=== PATIENT | male | born 1975 | race Caucasian/White ===

== ENCOUNTER → 2019-11-30 | Outpatient (CLI) | payer OTHER | END | disposition home or self-care (01) | LOC: LABWHC1 07:50 | PROVIDERS: ATTEND Otolaryngology | DX: J30.89 Other allergic rhinitis (principal) | CPT/HCPCS: 36415 ==

== ENCOUNTER → 2020-02-24 | Outpatient (CLI) | payer OTHER | END | disposition home or self-care (01) | LOC: LABWHC1 13:09 | PROVIDERS: ATTEND Internal Medicine | DX: Z20.828 Contact with and (suspected) exposure to other viral communicable diseases (principal) | CPT/HCPCS: U0003; C9803 ==

== ENCOUNTER 2020-02-26 13:29 | Emergency (ER) | payer OTHER ==
[2020-02-26 13:36] VITALS: TEMP 97.8
[2020-02-26] MEDS ORDERED: dexAMETHasone 4 MG TAB PO STA (13:49)
[2020-02-26] MEDS ORDERED: ALBUTEROL HFA INHALER INHALATION STA (13:50)
[2020-02-26] MEDS ORDERED: guaiFENesin-DM 100-10MG/5ML 10 ML CUP PO STA (13:50)
--- NOTE | 2020-02-26 13:51 | ED ---
SOB HPI - General Chief Complaint: Shortness of Breath Stated Complaint: SOB Time Seen by Provider: 02/26/20 13:39 Source: patient Mode of arrival: ambulatory Limitations: no limitations - History of Present Illness Initial Comments: Patient complains of shortness of breath. He has a mild cough. He has no chest pain or pressure or tightness. He has no nausea or vomiting. He has no focal weakness, lightheadedness or dizziness. He has no trouble walking. He is tolerating oral intake. - Related Data Home Medications Medication Instructions Recorded Confirmed Acetaminophen Tab [Tylenol] 1,000 mg PO Q4H PRN 02/26/20 02/26/20 Loratadine-Pseudoeph 10-240 mg 1 tab PO DAILY PRN 02/26/20 02/26/20 [Claritin-D 24 Hour] Tadalafil [Cialis] 20 mg PO DAILY PRN 02/26/20 02/26/20 Previous Rx's Medication Instructions Recorded Azithromycin [Zithromax Z-pack (6 250 mg PO DIRECTED 5 Days #6 tab 02/26/20 tabs)] Allergies Allergy/AdvReac Type Severity Reaction Status Date / Time No Known Allergies Allergy Verified 02/26/20 14:22 Review of Systems ROS Statement: Those systems with pertinent positive or pertinent negative responses have been documented in the HPI. ROS Other: All systems not noted in ROS Statement are negative. Past Medical History Past Medical History: No Reported History History of Any Multi-Drug Resistant Organisms: None Reported Past Surgical History: No Surgical Hx Reported Past Psychological History: No Psychological Hx Reported Smoking Status: Never smoker Past Alcohol Use History: None Reported Past Drug Use History: None Reported General Exam Limitations: no limitations General appearance: alert, in no apparent distress Head exam: Present: atraumatic, normocephalic, normal inspection Eye exam: Present: normal appearance, PERRL, EOMI. Absent: scleral icterus, conjunctival injection, periorbital swelling ENT exam: Present: normal exam, mucous membranes moist Neck exam: Present: normal inspection. Absent: tenderness, meningismus, lymphadenopathy Respiratory exam: Present: normal lung sounds bilaterally. Absent: respiratory distress, wheezes, rales, rhonchi, stridor Cardiovascular Exam: Present: regular rate, normal rhythm, normal heart sounds. Absent: systolic murmur, diastolic murmur, rubs, gallop, clicks GI/Abdominal exam: Present: soft, normal bowel sounds. Absent: distended, tende rness, guarding, rebound, rigid Extremities exam: Present: normal inspection, full ROM, normal capillary refill. Absent: tenderness, pedal edema, joint swelling, calf tenderness Back exam: Present: normal inspection Neurological exam: Present: alert, oriented X3, CN II-XII intact Psychiatric exam: Present: normal affect, normal mood Skin exam: Present: warm, dry, intact, normal color. Absent: rash Course Vital Signs 02/26/20 13:32 Temperature 97.8 F Pulse Rate 87 Respiratory 20 Rate Blood Pressure 142/93 O2 Sat by Pulse 97 Oximetry Medical Decision Making - Medical Decision Making Patient presented with cough, shortness of breath. His vital signs are normal. He does not require supplemental oxygen. His chest x-rays clear. Patient is given steroids and guaifenesin in the [facility]. He is feeling better. He is stable for discharge. Disposition Clinical Impression: URI (upper respiratory infection) Disposition: HOME SELF-CARE Condition: Good Instructions (If sedation given, give patient instructions): Acute Bronchitis (ED) Prescriptions: Azithromycin [Zithromax Z-pack (6 tabs)] 250 mg PO DIRECTED 5 Days #6 tab Is patient prescribed a controlled substance at d/c from ED?: No Referrals: Vikram Andre MD [Primary Care Provider] - 1-2 days
--- NOTE | 2020-02-26 14:17 | XR ---
EXAMINATION TYPE: XR chest 1V portable DATE OF EXAM: 02/26/2020 COMPARISON: NONE HISTORY: Short of breath TECHNIQUE: FINDINGS: Heart is normal. Lungs are clear of infiltrate. There is no heart failure. There are no hil ar masses. Bony thorax is intact. IMPRESSION: No active cardiopulmonary disease. Normal heart.
[2020-02-26 15:00] VITALS: BP 133/92; PULSE 80; RESP 18
== END 2020-02-26 15:01 | disposition home or self-care (01) ==
LOC: EC 13:29
DX: J06.9 Acute upper respiratory infection, unspecified (principal)
CPT/HCPCS: 94640; 71045; 99285; J8540

== ENCOUNTER → 2020-03-12 | Outpatient (CLI) | payer OTHER | END | disposition home or self-care (01) | LOC: LABWHC1 15:41 | PROVIDERS: ATTEND Internal Medicine | DX: U07.1 COVID-19 (principal) | CPT/HCPCS: U0003; C9803 ==

== ENCOUNTER → 2020-03-20 | Outpatient (CLI) | payer OTHER ==
--- NOTE | 2020-03-20 15:57 | XR ---
EXAMINATION TYPE: XR chest 2V DATE OF EXAM: 03/20/2020 COMPARISON: Prior chest x-ray 02/26/2020 HISTORY: History of bronchitis, U07.1, Covid TECHNIQUE: Frontal and lateral views of the chest are obtained. FINDINGS: There is no pleural effusion or pneumothorax seen. Suprahilar density on the right appears somewhat more conspicuous possibly due to differences in technique. The cardiac silhouette size is w ithin normal limits. The osseous structures are intact. IMPRESSION: Suspect findings of suprahilar density may be be due to differences in technique, short interval follow-up could be performed to assess for stability.
== END | disposition home or self-care (01) ==
LOC: RADXRMAIN 11:40
PROVIDERS: ATTEND Internal Medicine
DX: U07.1 COVID-19 (principal)
CPT/HCPCS: 71046

== ENCOUNTER → 2020-03-29 | Outpatient (CLI) | payer OTHER ==
--- NOTE | 2020-03-29 11:50 | CT ---
EXAMINATION TYPE: CT chest w con DATE OF EXAM: 03/29/2020 COMPARISON: X-ray 03/20/2020 HISTORY: Abnormal finding of lung field CT DLP: 326.50 mGycm Automated exposure control for dose reduction was used. CONTRAST: CT scan of the chest is performed with IV Contrast, patient injected with 100 ml mL of Isovue 300. FINDINGS: LUNGS: Nonspecific areas of bilateral subsegmental consolidation. No overt failure.. There is no pl eural effusion or pneumothorax seen. The tracheobronchial tree is patent. MEDIASTINUM: There are no greater than 1 cm hilar or mediastinal lymph nodes. No pericardial effusi on is seen. Heart size prominent. There does appear to be mild aneurysmal dilation of the aortic brianne t measuring 4.1 cm. Descending thoracic aorta measures normal caliber. OTHER: No additional significant abnormality is seen. IMPRESSION: 1. No evidence of concerning pulmonary mass or adenopathy. 2. Areas of subsegmental consolidation. Findings are scattered bilaterally and felt to be most likely on the basis of atelectasis rather than a pneumonitis. Correlate clinically. 3. Mild aneurysmal dilation of the aortic root measuring 4.1 cm
== END | disposition home or self-care (01) ==
LOC: RADCTMAIN 09:34
PROVIDERS: ATTEND Internal Medicine
DX: I77.810 Thoracic aortic ectasia (principal); J18.1 Lobar pneumonia, unspecified organism; U07.1 COVID-19
CPT/HCPCS: 71260; Q9967

== ENCOUNTER → 2020-04-12 | Outpatient (CLI) | payer OTHER ==
--- NOTE | 2020-04-12 18:04 | ECHOF ---
Referral Reason:I71.9 Aortic aneurysm of unspecified site MEASUREMENTS -------- HEIGHT: 185.4 cm WEIGHT: 93.0 kg BP: 121/76 IVSd: 1.2 cm (0.6 - 1.1) LVIDd: 5.4 cm (3.9 - 5.3) LVPWd: 1.1 cm (0.6 - 1.1) IVSs: 1.8 cm LVIDs: 3.3 cm LVPWs: 1.8 cm LA Diam: 3.1 cm (2.7 - 3.8) RVIDd: 3.1 cm (< 3.3) LAESV Index (A-L): 18.70 ml/m Ao Diam: 4.5 cm (2.0 - 3.7) AV Cusp: 2.9 cm (1.5 - 2.6) EPSS: 0.6 cm MV E Lei: 0.78 m/s MV DecT: 265 ms MV A Lei: 0.76 m/s MV E/A Ratio: 1.03 RAP: 5.00 mmHg RVSP: 17.98 mmHg MV EF SLOPE: 138.70 mm/s (70 - 150) MV EXCURSION: 16.59 mm (> 18.000) FINDINGS -------- Sinus rhythm. This was a technically good study. The left ventricular size is normal. There is borderline concentric left ventricular hypertrophy. Overall left ventricular systolic function is normal with, an EF between 60 - 65 %. The right ventricle is normal in size. Normal LA size by volume 22+/-6 ml/m2. The right atrium is normal in size. Interatrial and interventricular septum intact. The aortic valve is trileaflet and appears structurally normal. The mitral valve is normal. The tricuspid valve appears structurally normal. Trace/mild (physiologic) pulmonic regurgitation. The aortic root is dilated measuring 4.5cm. Normal inferior vena cava with normal inspiratory collapse consistent with estimated right atrial pre ssure of 5 mmHg. There is no pericardial effusion. CONCLUSIONS -------- 1. The left ventricular size is normal. 2. There is borderline concentric left ventricular hypertrophy. 3. Overall left ventricular systolic function is normal with, an EF between 60 - 65 %. 4. Trace/mild (physiologic) pulmonic regurgitation. 5. The aortic root is dilated measuring 4.5cm. 6. There is no pericardial effusion. CONTROL TOWER OPERATOR: Susanne Bran RDCS
== END | disposition home or self-care (01) ==
LOC: RADECHMAIN 08:21
PROVIDERS: ATTEND Internal Medicine
DX: I37.1 Nonrheumatic pulmonary valve insufficiency (principal); I77.819 Aortic ectasia, unspecified site
CPT/HCPCS: 93306

== ENCOUNTER → 2021-04-01 | Outpatient (CLI) | payer OTHER ==
--- NOTE | 2021-04-01 12:55 | CT ---
EXAMINATION TYPE: CT angio chest DATE OF EXAM: 04/01/2021 COMPARISON: 03/29/2020 HISTORY: 45-year-old male I71.2, follow up thoracic aneurysm TECHNIQUE: Contiguous axial scanning of the chest performed without and with IV Contrast, patient inj ected with 100 mL of Isovue 370. Coronal/sagittal MIP reconstructions performed. 3-D reconstructions generated on a dedicated independent workstation. CT DLP: 626.1 mGycm Automated exposure control for dose reduction was used. FINDINGS: Heart upper limits of normal in size without pericardial effusion. Aortic root aneurysmal at 4.3 cm. There is some limitation due to cardiac motion. Not significantly c hanged. Ascending aorta also aneurysmal at 4.3 cm, unchanged. The metatarsal branching anatomy. No evidence for aortic dissection. Initial noncontrast images show no evidence for acute or intramura l hematoma. Upper descending thoracic aorta 2.8 cm, within normal limits. No thoracic lymphadenopathy by CT size criteria. Mild diffuse bronchial wall thickening. Minimal centrilobular emphysema. Mild dependent atelectasis a long the posterior aspect of the lungs. No consolidation or pleural effusion. Tiny hiatal hernia. Visualized upper abdomen shows a tiny inferior hilar splenule. Bones: No osseous destructive process. IMPRESSION: 1. STABLE ASCENDING AORTIC ANEURYSM (ASCENDING AORTA AND ROOT MEASURING 4.3 CM). 2. COPD WITH MILD EMPHYSEMA. 3. TINY HIATAL HERNIA.
== END | disposition home or self-care (01) ==
LOC: RADCTMAIN 08:49
PROVIDERS: ATTEND Internal Medicine Interventional Cardiology
DX: I71.2 Thoracic aortic aneurysm, without rupture (principal); J43.9 Emphysema, unspecified; K44.9 Diaphragmatic hernia without obstruction or gangrene
CPT/HCPCS: 71275; Q9967

== ENCOUNTER 2021-07-19 08:16 | Day surgery (SDC) | payer OTHER ==
[2021-07-17 09:43] VITALS: BMI 27.0
[~2021-07-19 08:16] MED LIST: LACTATED RINGERS 1,000 ML IV SCH; LIDOCAINE 1% (10MG/ML) FOR IV START INTRADERMA PRN
[2021-07-19 08:34] VITALS: TEMP 97.2
[2021-07-19] MEDS ORDERED: LIDOCAINE 1% INJ 10MG/ML (20 ML MDV) ONE (08:41)
[2021-07-19] MEDS ORDERED: PROPOFOL 10 MG/ML 20 ML VIAL IV ONE (08:41)
--- NOTE | 2021-07-19 09:03 | P.HPIHPCON ---
History of Present Illness H&P Date: 07/19/21 46-year-old male presents today for screening colonoscopy. Last colonoscopy was 3 years ago. Patient does have a family history of colon cancer with his father. Consent for Procedure: I have explained the operation/procedure to the patient, including the risks, benefits, side effects, alternative therapies (including not receiving the proposed treatment or service), the likelihood of the patient achieving his/her goals, and potential recuperation problems for the procedure/sedation/analgesia, as well as any blood products, if indicated. I also explained to the patient the risks, benefits and side effects of the alternatives, as well as the risks related to not receiving the proposed procedure, care, treatment, or services. - Review of Systems All systems: negative Past Medical History Past Medical History: No Reported History History of Any Multi-Drug Resistant Organisms: None Reported Past Surgical History: No Surgical Hx Reported Additional Past Surgical History / Comment(s): COLONOSCOPY Past Anesthesia/Blood Transfusion Reactions: No Reported Reaction Smoking Status: Never smoker - Past Family History Father Family Medical History: Cancer Additional Family Medical History / Comment(s): COLON Medications and Allergies Home Medications Medication Instructions Recorded Confirmed Type No Known Home Medications 07/17/21 07/19/21 History Allergies Allergy/AdvReac Type Severity Reaction Status Date / Time No Known Allergies Allergy Verified 07/19/21 08:22 Surgical - Exam Osteopathic Statement: *. No significant issues noted on an osteopathic structural exam other than those noted in the History and Physical/Consult. Vital Signs Temp Pulse Resp BP Pulse Ox 97.2 F L 67 16 127/71 98 07/19/21 08:32 07/19/21 08:32 07/19/21 08:32 07/19/21 08:32 07/19/21 08:32 - General well nourished, no distress - ENT no hearing loss - Neck trachea midline - Respiratory normal respiratory effort - Abdomen Abdomen: soft, non tender Assessment and Plan Plan: 46-year-old male presents today for screening colonoscopy. Risks, benefits and alternatives were provided to the patient. He did provide consent. Further recommendations to be made after procedure is completed.
--- NOTE | 2021-07-19 09:06 | P.PCN ---
Date of Procedure: 07/19/21 Preoperative Diagnosis: Screening family history of colon cancer Postoperative Diagnosis: Colon polyps Diverticulosis Procedure(s) Performed: Colonoscopy with hot snare polypectomy and forcep polypectomy Anesthesia: MAC Surgeon: Diya Sweeney Pathology: other (Polyps of the hepatic flexure and transverse colon) Condition: stable Disposition: same day Indications for Procedure: 46-year-old male presents today for screening colonoscopy. He does have a family history of colon cancer with his father being diagnosed with colon cancer. His brother does have a history of colitis. Risks, benefits and alternatives were provided. Operative Findings: Polyps of the hepatic flexure and transverse colon Mild diverticulosis Description of Procedure: The patient was brought to the endoscopy suite and placed in left lateral decubitus position. Adequate sedation was achieved using conscious sedation. A digital rectal exam was performed and internal hemorrhoids were palpated. An endoscope was then placed in the rectum and advanced to the cecum as identified by landmarks including the appendiceal orifice and the ileocecal valve. The prep was good. The colonoscope was slowly withdrawn, examining for any mucosal abnormalities. The cecum, ascending, transverse, descending and sigmoid colon were visualized adequately. There were no obvious neoplastic lesions noted throughout the colon. Polyp was noted at the hepatic flexure. This was sessile appearing. Forcep polypectomy was used to remove this polyp and piecemeal fashion. The hemostasis was maintained. Additional polyp was noted in the transverse colon. This was removed with hot snare polypectomy. Hemostasis was maintained. Mild diverticulosis was noted in the sigmoid colon. Retroflexion was performed in the rectum and internal hemorrhoids were visible. Excess air was removed, the colonoscope withdrawn and the procedure terminated. The patient was then transferred to the recovery unit in stable condition. Repeat colonoscopy should be performed in 3years.
[2021-07-19 09:20] VITALS: RESP 16
[2021-07-19 09:37] VITALS: BP 119/83; PULSE 58
== END 2021-07-19 09:55 | disposition home or self-care (01) ==
LOC: ORWHC2ENDO 08:16
PROVIDERS: ATTEND Surgery
DX: Z12.11 Encounter for screening for malignant neoplasm of colon (principal); K57.90 Diverticulosis of intestine, part unspecified, without perforation or abscess without bleeding; D12.3 Benign neoplasm of transverse colon; Z80.0 Family history of malignant neoplasm of digestive organs
CPT/HCPCS: 45380; 45385; 88305; J2001; J2704

== ENCOUNTER → 2021-08-15 | Outpatient (CLI) | payer OTHER ==
--- NOTE | 2021-08-15 11:05 | CT ---
EXAMINATION TYPE: CT abdomen pelvis wo con DATE OF EXAM: 08/15/2021 COMPARISON: None HISTORY: N23 renl colic L side Examination of the solid and hollow viscera is limited given the lack of contrast. FINDINGS: LUNG BASES: No evidence for nodule. No evidence for infiltrate. LIVER/GB: The gallbladder is unremarkable. No space-occupying hepatic lesion. PANCREAS: No pancreatic mass identified. No inflammatory process seen. SPLEEN: No evidence for splenomegaly. No intrasplenic lesions seen. ADRENALS: No adrenal nodules identified. No evidence for thickening. KIDNEYS: No evidence for renal mass. 3.5 mm left ureteral calculus just distal to the left UPJ result ing in mild left-sided hydronephrosis. Minimal left renal stranding. No additional renal calculi seen . Right kidney is unremarkable. BOWEL: Appendix has a normal appearance. No evidence of bowel obstruction. No inflammatory process. Lymph nodes: No evidence for adenopathy greater than 1 cm. Abdominal aorta: Atheromatous changes seen. No evidence for aneurysm. Genital organs: No significant abnormality. Other: No significant abnormality. IMPRESSION: 3.5 mm left ureteral calculus just distal to the left UPJ resulting in mild left-sided hydronephrosis . Minimal left renal stranding.
== END | disposition home or self-care (01) ==
LOC: RADCTMAIN 10:40
PROVIDERS: ATTEND Internal Medicine
DX: N13.2 Hydronephrosis with renal and ureteral calculous obstruction (principal)
CPT/HCPCS: 74176

== ENCOUNTER 2021-09-12 09:09 | Emergency (ER) | payer OTHER ==
[2021-09-12] MEDS ORDERED: KETOROLAC 15 MG/ML 1 ML VIAL IVP STA (09:42)
[2021-09-12] MEDS ORDERED: ONDANSETRON 4 MG/2 ML VIAL IVP STA ×2 (09:42→12:20)
[2021-09-12] MEDS ORDERED: MORPHINE SULFATE 4 MG/ML SYRINGE IV STA (09:42)
[2021-09-12] MEDS ORDERED: SODIUM CHLORIDE 0.9% 1,000 ML IV STA (09:42)
[2021-09-12] MEDS ORDERED: diphenhydrAMINE 50 MG/ML 1 ML VIAL IVP STA (09:42)
[2021-09-12 10:05] VITALS: RESP 16
[2021-09-12 10:14] LABS: Basophils % (A) 1 %; Eosinophils # (A) 0.1 k/uL (0-0.7); Eosinophils % (A) 1 %; Lymphocytes # (A) 1.3 k/uL (1.0-4.8); Lymphocytes % (A) 30 %; MCH 30.9 pg (25.0-35.0); MCHC 31.9 g/dL (31.0-37.0); MCV 97.1 fL (80.0-100.0); Mean Platelet Volume 7.7; Monocytes # (A) 0.4 k/uL (0-1.0); Monocytes % (A) 9 %; Neutrophils # (A) 2.4 k/uL (1.3-7.7); Neutrophils % (A) 56 %; Platelet Count 238 k/uL (150-450); RBC 4.53 m/uL (4.30-5.90); RDW 11.7 % (11.5-15.5); WBC 4.3 k/uL (3.8-10.6)
[2021-09-12 10:29] LABS: ALT 19 U/L (4-49); AST 23 U/L (17-59); African American GFR (CKD) >90 (>60 ml/min/1.73 sqM); Albumin 4.4 g/dL (3.5-5.0); Alkaline Phosphatase 65 U/L (38-126); Amylase 51 U/L (30-110); Anion Gap 8 mmol/L; Blood Urea Nitrogen 17 mg/dL (9-20); Calcium 9.2 mg/dL (8.4-10.2); Carbon Dioxide 25 mmol/L (22-30); Chloride 105 mmol/L (98-107); Glucose 109 mg/dL (74-99); Lipase 60 U/L (23-300); Non-African American GFR(CKD) 82 (>60 ml/min/1.73 sqM); Sodium 138 mmol/L (137-145); Total Bilirubin 0.7 mg/dL (0.2-1.3); Total Protein 7.2 g/dL (6.3-8.2)
--- NOTE | 2021-09-12 10:29 | ED ---
General Adult HPI - General Chief complaint: Abdominal Pain Stated complaint: kidney stones Time Seen by Provider: 09/12/21 09:27 Source: patient, RN notes reviewed, old records reviewed Mode of arrival: ambulatory Limitations: no limitations - History of Present Illness Initial comments: Patient is a 46-year-old male with past medical history remarkable for kidney stones on the left side, who presents emergency department after being sent in by his PCP over concern for worsening kidney stones. States he has been having intermittent left-sided flank pain over the last few days. Became worse over the last 24 hours and has included nonbilious emesis over that time. Discussed the pain as left lower back and left flank. Denies any dysuria but does endorse some hematuria. Denies any diarrhea or other abdominal pain. His no chest pain or shortness of breath. No fevers or chills. No sick contacts. Presents for further evaluation at this time. - Related Data Previous Rx's Medication Instructions Recorded HYDROcodone/APAP 5-325MG [Sleepy Eye 1 tab PO Q6HR PRN 3 Days #12 tab 09/12/21 5-325] Ibuprofen 600 mg PO Q6H PRN 7 Days #28 tab 09/12/21 Ondansetron Odt [Zofran Odt] 4 mg PO Q8HR PRN 3 Days #9 tab 09/12/21 Tamsulosin HCl [Flomax] 0.4 mg PO DAILY 7 Days #7 capsule 09/12/21 Allergies Allergy/AdvReac Type Severity Reaction Status Date / Time No Known Allergies Allergy Verified 09/12/21 09:59 Review of Systems ROS Statement: Those systems with pertinent positive or pertinent negative responses have been documented in the HPI. Review of Systems: CONST: Denies fever EYES: Denies blurry vision ENT: Denies nasal congestion C/V: Denies Chest pain RESP: Denies shortness of breath GI: Endorses abdominal pain : Denies dysuria SKIN: Denies rash. MSK: Denies joint pain. NEURO: Denies headache ROS Other: All systems not noted in ROS Statement are negative. Past Medical History Past Medical History: No Reported History Additional Past Medical History / Comment(s): Kidney stones History of Any Multi-Drug Resistant Organisms: None Reported Past Surgical History: No Surgical Hx Reported Past Psychological History: No Psychological Hx Reported Smoking Status: Never smoker Past Alcohol Use History: Occasional Past Drug Use History: None Reported General Exam - General Exam Comments Initial Comments: General: Is In mild to moderate distress secondary to abdominal pain. HEAD: Normal with no signs of head trauma. EYES: PERRLA, EOMI, conjunctiva normal, no discharge. ENT: Hearing grossly intact, normal oropharynx. Mildly dry mucous membranes. RESPIRATORY: Clear breath sounds bilaterally. No wheezes, rales, or rhonchi. C/V: Regular rate and rhythm. S1 and S2 auscultated, no edema, peripheral pulses 2+ and intact throughout ABD: Abdomen is soft, nondistended. Patient is somewhat sided flank pain as well as mild left-sided CVA tenderness to percussion. No guarding. No rebound tenderness. No peritoneal signs. EXT: Normal range of motion, no obvious deformity SKIN: No rashes or lesions observed on exposed skin. NEURO: Alert and oriented 4. Limitations: no limitations Course Vital Signs 09/12/21 09/12/21 09/12/21 09:23 10:04 10:53 Temperature 97.4 F L Pulse Rate 66 60 75 Respiratory 22 16 16 Rate Blood Pressure 126/83 120/85 123/84 O2 Sat by Pulse 96 91 L 100 Oximetry 09/12/21 12:33 Temperature 97.8 F Pulse Rate 74 Respiratory 16 Rate Blood Pressure 117/81 O2 Sat by Pulse 97 Oximetry Medical Decision Making - Medical Decision Making Based on the patient's presentation and physical exam, I'm concerned for left- sided kidney stones. Patient was CT didn't diagnosed with a left-sided kidney stones a few weeks ago. States that they did improve at that time, however returns today due to symptom onset. His no other acute complaints at this time. The kidney stones were 3.5 mm in size resulted in mild left-sided hydronephrosis. Due to his recent CT imaging, we will obtain abdominal x-ray as well as renal ultrasound to evaluate for [place]. Abdominal labs as well as urinalysis will be obtained as well. He will be symptomatically treated with IV fluids, as well as GI cocktail. Patient was in agreement with this plan. Laboratory studies are remarkable for urinalysis with a small amount of blood present. No other findings on labs. X-ray shows an approximate 4 mm left sided nephrolithiasis. Renal ultrasound reveals persistent mild left-sided hydronephrosis. Patient was redosed medications. I discussed the findings with him. He would like to try to go home to manage the pain at this time. He states he will return if he becomes unbearable. I believe this is reasonable as the patient's stone is small and should pass on its own. He'll be given a prescription for Flomax, Sleepy Eye, ibuprofen, ODT Zofran. He'll be given follow-up outpatient with urology. Patient was in agreement this plan. I will provide the patient with a prescription for Flomax, ODT Zofran, Sleepy Eye 5, ibuprofen. I instructed the patient to follow up with their PCP in the next 3 days. I explained that the patient should return to the emergency department if they experience any worsening symptoms. Strict return precautions were discussed with the patient. The patient expressed understanding of these instructions. I answered all questions that the patient had. The patient was discharged home in fair condition with their prescriptions and follow up information. - Lab Data Result diagrams: 09/12/21 09:49 09/12/21 09:49 Lab Results 09/12/21 09/12/21 09/12/21 Range/Units 09:49 09:49 09:49 WBC 4.3 (3.8-10.6) k/uL RBC 4.53 (4.30-5.90) m/uL Hgb 14.0 (13.0-17.5) gm/dL Hct 44.0 (39.0-53.0) % MCV 97.1 (80.0-100.0) fL MCH 30.9 (25.0-35.0) pg MCHC 31.9 (31.0-37.0) g/dL RDW 11.7 (11.5-15.5) % Plt Count 238 (150-450) k/uL MPV 7.7 Neutrophils % 56 % Lymphocytes % 30 % Monocytes % 9 % Eosinophils % 1 % Basophils % 1 % Neutrophils # 2.4 (1.3-7.7) k/uL Lymphocytes # 1.3 (1.0-4.8) k/uL Monocytes # 0.4 (0-1.0) k/uL Eosinophils # 0.1 (0-0.7) k/uL Basophils # 0.0 (0-0.2) k/uL PT 10.5 (9.0-12.0) sec INR 1.0 (<1.2) APTT 19.4 L (22.0-30.0) sec Sodium (137-145) mmol/L Potassium (3.5-5.1) mmol/L Chloride (98-107) mmol/L Carbon Dioxide (22-30) mmol/L Anion Gap mmol/L BUN (9-20) mg/dL Creatinine (0.66-1.25) mg/dL Est GFR (CKD-EPI)AfAm (>60 ml/min/1.73 sqM) Est GFR (CKD-EPI)NonAf (>60 ml/min/1.73 sqM) Glucose (74-99) mg/dL Calcium (8.4-10.2) mg/dL Total Bilirubin (0.2-1.3) mg/dL AST (17-59) U/L ALT (4-49) U/L Alkaline Phosphatase (38-126) U/L Total Protein (6.3-8.2) g/dL Albumin (3.5-5.0) g/dL Amylase (30-110) U/L Lipase (23-300) U/L Urine Color Yellow Urine Appearance Clear (Clear) Urine pH 6.5 (5.0-8.0) Ur Specific [place] 1.022 (1.001-1.035) Urine Protein Trace H (Negative) Urine Glucose (UA) Negative (Negative) Urine Ketones Negative (Negative) Urine Blood Small H (Negative) Urine Nitrite Negative (Negative) Urine Bilirubin Negative (Negative) Urine Urobilinogen <2.0 (<2.0) mg/dL Ur Leukocyte Esterase Negative (Negative) Urine RBC 61 H (0-5) /hpf Urine WBC 3 (0-5) /hpf Ur Squamous Epith Cells <1 (0-4) /hpf Amorphous Sediment Few H (None) /hpf Urine Bacteria Rare H (None) /hpf Urine Mucus Occasional H (None) /hpf 09/12/21 Range/Units 09:49 WBC (3.8-10.6) k/uL RBC (4.30-5.90) m/uL Hgb (13.0-17.5) gm/dL Hct (39.0-53.0) % MCV (80.0-100.0) fL MCH (25.0-35.0) pg MCHC (31.0-37.0) g/dL RDW (11.5-15.5) % Plt Count (150-450) k/uL MPV Neutrophils % % Lymphocytes % % Monocytes % % Eosinophils % % Basophils % % Neutrophils # (1.3-7.7) k/uL Lymphocytes # (1.0-4.8) k/uL Monocytes # (0-1.0) k/uL Eosinophils # (0-0.7) k/uL Basophils # (0-0.2) k/uL PT (9.0-12.0) sec INR (<1.2) APTT (22.0-30.0) sec Sodium 138 (137-145) mmol/L Potassium 4.0 (3.5-5.1) mmol/L Chloride 105 (98-107) mmol/L Carbon Dioxide 25 (22-30) mmol/L Anion Gap 8 mmol/L BUN 17 (9-20) mg/dL Creatinine 1.07 (0.66-1.25) mg/dL Est GFR (CKD-EPI)AfAm >90 (>60 ml/min/1.73 sqM) Est GFR (CKD-EPI)NonAf 82 (>60 ml/min/1.73 sqM) Glucose 109 H (74-99) mg/dL Calcium 9.2 (8.4-10.2) mg/dL Total Bilirubin 0.7 (0.2-1.3) mg/dL AST 23 (17-59) U/L ALT 19 (4-49) U/L Alkaline Phosphatase 65 (38-126) U/L Total Protein 7.2 (6.3-8.2) g/dL Albumin 4.4 (3.5-5.0) g/dL Amylase 51 (30-110) U/L Lipase 60 (23-300) U/L Urine Color Urine Appearance (Clear) Urine pH (5.0-8.0) Ur Specific [place] (1.001-1.035) Urine Protein (Negative) Urine Glucose (UA) (Negative) Urine Ketones (Negative) Urine Blood (Negative) Urine Nitrite (Negative) Urine Bilirubin (Negative) Urine Urobilinogen (<2.0) mg/dL Ur Leukocyte Esterase (Negative) Urine RBC (0-5) /hpf Urine WBC (0-5) /hpf Ur Squamous Epith Cells (0-4) /hpf Amorphous Sediment (None) /hpf Urine Bacteria (None) /hpf Urine Mucus (None) /hpf Disposition Clinical Impression: Nephrolithiasis Disposition: HOME SELF-CARE Condition: Fair Instructions (If sedation given, give patient instructions): Kidney Stones (ED) Prescriptions: Tamsulosin HCl [Flomax] 0.4 mg PO DAILY 7 Days #7 capsule Ibuprofen 600 mg PO Q6H PRN 7 Days #28 tab PRN Reason: Pain HYDROcodone/APAP 5-325MG [Sleepy Eye 5-325] 1 tab PO Q6HR PRN 3 Days #12 tab PRN Reason: Pain Ondansetron Odt [Zofran Odt] 4 mg PO Q8HR PRN 3 Days #9 tab PRN Reason: Nausea Is patient prescribed a controlled substance at d/c from ED?: Yes When asked, does pt state using other controlled substances?: No If prescribed controlled substance>3 days was MAPS reviewed?: Prescribed <3 Days If opioid is for acute pain is fill amount 7 days or less?: Yes Referrals: Vikram Andre MD [Primary Care Provider] - 1-2 days Raheel Hopkins MD [STAFF PHYSICIAN] - 1-2 days Time of Disposition: 11:55
[2021-09-12 10:30] LABS: Prothrombin Time 10.5 sec (9.0-12.0)
[2021-09-12 10:45] LABS: Partial Thromboplastin Time 19.4 sec (22.0-30.0)
--- NOTE | 2021-09-12 11:12 | US ---
EXAMINATION TYPE: US renals and bladder DATE OF EXAM: 09/12/2021 COMPARISON: CT August 15, 2021 CLINICAL HISTORY: history of left sided kidney stone,. Hx left kidney stone. Left-sided pain. EXAM MEASUREMENTS: Right Kidney: 12.4 x 6.0 x 4.8 cm Left Kidney: 13.3 x 6.8 x 7.4 cm Right Kidney: Anechoic area seen lower pole: 1.1 x 0.9 x 1.1 cm. Left Kidney: Slightly enlarged. Hyperechoic focus seen with twinkle artifact: 0.5 x 0.5 x 0.4 cm. Ap pearance of possible dilated upper collecting system- anechoic-hypoechoic connective appearance. Bladder: Not fully distended, limited evaluation. Bilateral Jets seen: No Incidental 1.1 cm benign-appearing thin-walled cyst lower pole level right kidney. Nonspecific 4 mm n onshadowing hyperechoic focus midpole left kidney. Mild left-sided pyelocaliectasis remains present. Bladder not greatly distended. Bilateral distal ureter just not seen. IMPRESSION: Persistent mild left-sided hydronephrosis suspicious for persistent obstructing small ure ter calculus.
--- NOTE | 2021-09-12 11:20 | XR ---
EXAMINATION TYPE: XR KUB DATE OF EXAM: 09/12/2021 COMPARISON: 08/15/2021 HISTORY: Pain TECHNIQUE: One view abdominal series FINDINGS: The osseous structures are intact. The bowel gas pattern is nonspecific. Lung bases are clear. Arth ropathy of the hips correlate for femoral acetabular impingement. There is a calcification adjacent to the L4 vertebral body on the left suspicious for ureteral calcul us. IMPRESSION: 1. Nonspecific abdomen. 2. There is a calcification adjacent to the L4 vertebral body on the left suspicious for her millimet er ureteral calculus.
[2021-09-12 12:05] LABS: Amorphous Sediment,Urine Few /hpf; Appearance,Urine Clear (Clear); Bacteria,Urine Rare /hpf; Bilirubin,Urine Negative (Negative); Blood,Urine Small (Negative); Color,Urine Yellow; Glucose,Urine (UA) Negative (Negative); Ketones,Urine Negative (Negative); Leukocyte Esterase,Urine Negative (Negative); Mucus,Urine Occasional /hpf; Nitrite,Urine Negative (Negative); PH, Urine 6.5 (5.0-8.0); Protein,Urine Trace (Negative); RBC,Urine 61 /hpf (0-5); Specific Gravity,Urine 1.022 (1.001-1.035); Squamous Epithelial Cell,Urine <1 /hpf (0-4); Urobilinogen,Urine <2.0 mg/dL (<2.0); WBC,Urine 3 /hpf (0-5)
[2021-09-12] MEDS ORDERED: MORPHINE SULFATE 4 MG/ML SYRINGE IVP STA (12:08)
[2021-09-12 12:34] VITALS: BP 117/81; PULSE 74; TEMP 97.8
== END 2021-09-12 12:32 | disposition home or self-care (01) ==
LOC: EC 09:09
DX: N13.2 Hydronephrosis with renal and ureteral calculous obstruction (principal)
CPT/HCPCS: 36415; 80053; 82150; 83690; 85025; 85610; 85730; 81001; 74018; 76770; 99284; 96374; 96375 ×3; 96376 ×2; 96361; J2270; J1200; J2405; J1885

== ENCOUNTER → 2021-09-23 | Outpatient (CLI) | payer OTHER ==
--- NOTE | 2021-09-23 08:26 | XR ---
KUB HISTORY: N 201, left ureteral calculus, status post lithotripsy KUB and 2 images correlated prior KUB 09/12/2021 There is no evident bowel obstruction or pneumoperitoneum. Overlying artifacts suspected. Bowel gas m ay obscure underlying detail. No evident pathologic calcification. IMPRESSION: Previously identified possible left ureteral calcification is not seen with certainty.
== END | disposition home or self-care (01) ==
LOC: RADXRMAIN 07:19
PROVIDERS: ATTEND Urology
DX: N20.1 Calculus of ureter (principal)
CPT/HCPCS: 74018

== ENCOUNTER → 2022-04-01 | Outpatient (CLI) | payer OTHER ==
--- NOTE | 2022-04-01 09:50 | CT ---
EXAMINATION TYPE: CT angio chest DATE OF EXAM: 04/01/2022 COMPARISON: 04/01/2021 HISTORY: Thoracic aortic aneurysm. CT DLP: 589.6 mGycm CONTRAST: CTA thoracic aorta with 3-D reconstruction is performed and with IV Contrast, patient injected with 1 00ml mL of Isovue 370. Contrast CTA of the thoracic aorta was performed from the lung apex through the upper abdomen. 3D re construction imaging obtained at a separate workstation. CT Chest: THORACIC AORTA: 4.2 cm aneurysm of the ascending thoracic aorta versus 4.3 cm previously. Mild athero matous changes seen. There is no evidence for dissection or periaortic collection. LUNGS: The lungs are clear and free of infiltrate or atelectasis. No pulmonary nodule or mass is det ected. No pleural effusion or CT evidence of interstitial lung disease. MEDIASTINUM: No evidence for mediastinal hematoma. The heart is not enlarged. No evidence for med iastinal mass or adenopathy. HILAR STRUCTURES: No evidence for mass. No hilar adenopathy is appreciated. OTHER: No significant abnormality. IMPRESSION- 4.2 cm ascending thoracic aortic aneurysm.
== END | disposition home or self-care (01) ==
LOC: RADCTMAIN 08:39
PROVIDERS: ATTEND Internal Medicine Interventional Cardiology
DX: I71.21 Aneurysm of the ascending aorta, without rupture (principal)
CPT/HCPCS: 71275; Q9967

== ENCOUNTER → 2023-05-28 | Outpatient (CLI) | payer OTHER ==
--- NOTE | 2023-05-28 10:18 | CT ---
Exam: CT Angiography of the Chest. Date: 05/28/2023. Comparison: 01/07/2023. History: Thoracic aortic aneurysm. Technique: CT examination of the chest was performed following the intravenous administration of 100 mL of Isovue-370. CT dose lowering techniques were used, to include: automated exposure control, adju stment for patient size, and/or use of iterative reconstruction. FINDINGS: Mediastinum and Cecilia: There is no axillary, mediastinal or hilar lymphadenopathy. Pleural and Pericardial spaces: There are no pleural or pericardial effusions. Upper Abdomen: There is a small sliding hiatal hernia. Cardiovascular: The thoracic aorta is dilated up to 4.3 cm in diameter. There is no evidence of aorti c dissection. This is unchanged since the previous examination. Pulmonary Artery: There are no filling defects in the pulmonary arteries. Lung Parenchyma and Airways: The lungs are clear. Bones: No fracture or aggressive osseous lesion. IMPRESSION: 1. Unchanged dilation of the ascending thoracic aorta up to 4.3 cm. 2. No definitive evidence of pulmonary embolism. 3. No evidence of pneumonia, pleural or pericardial effusions. 4. Small hiatal hernia.
== END | disposition home or self-care (01) ==
LOC: RADCTMAIN 08:32
PROVIDERS: ATTEND Internal Medicine Interventional Cardiology
DX: I71.21 Aneurysm of the ascending aorta, without rupture (principal); K44.9 Diaphragmatic hernia without obstruction or gangrene
CPT/HCPCS: 71275; Q9967

== ENCOUNTER 2023-07-15 19:39 | Outpatient (CLI) | payer OTHER ==
--- NOTE | 2023-08-03 12:56 | P.PCN ---
Date of Procedure: 07/15/23 Operative Findings: Polysomnography report Date of service is 07/15/2023 History This is a 48-year-old male patient with symptoms of snoring, sleep fragmentation and chronic fatigue and sleepiness. The patient is a Mallampati class IV. The patient was referred for a screening polysomnography. The patient also has chronic cough, currently being evaluated and treated and a thoracic aortic aneurysm without rupture measuring 4.2 cm and hyperlipidemia Pertinent physical findings The patient's height is 6 feet and 1 inch, weight is 204 pounds and a body mass index is 26.9 Technical description The patient was studied using a standard complex polysomnography protocol that included recording of the 2 EKG, Central, occipital and frontal EEG, right and left outer canthus EOG, submental EMG, right and left anterior tibialis EMG, respiratory airflow by thermocouple and or pressure/flow transducer, respiratory efforts by abdominal and thoracic PVDF belts, oxygen saturation by cable oximetry. Position by observation synchronized the PSG. . Equipment used: [employer]. Sleep architecture and characteristics The total recording duration was 422.5 minutes. Total sleep time was 222.5 minutes. The wake after sleep onset time was 53 minutes. Overall sleep efficiency was 76.3%. The latency to sleep onset was 46.5 minutes. Latest REM sleep was 90 minutes. Sleep architecture was catheterized by 7% stage I, 72.1% stage II, 0% stage III, and 20.6% REM sleep. The total arousal index was 8.4 Respiratory analysis The respiratory analysis demonstrated total of 96 obstructive events of which 37 or obstructive apneas, 0 were mixed apneas and 59 obstructive hypopneas. The resulting AHI was 17.3. The central apnea index was 0. Note that the patient had no interval worsening in sleep apnea during REM sleep or in the supine body position. Oxygenation analysis This patient had a baseline pulse ox of 95% while awake. Lowest pulse ox of 82%. The patient spent approximately 60 minutes of the sleep time below pulse ox of 89%. Sleep continuity summary The patient had total of 45 arousals with an index of 8.4. Respiratory arousal index was 3.5 Periodic limb movement There was a total of 31 periodic movement activity with an index of 5.8. No arousals. Cardiac summary The average heart rate was 65 with a minimum heart rate of 61 and maximum heart rate of 69 Assessment Obstructive sleep apnea, moderate in severity with an AHI of 17 Chronic fatigue and sleepiness with an [place] score of 9 Loud snoring Chronic cough Thoracic aortic aneurysm measuring 4.2 cm Hyperlipidemia Plan Will discuss findings with the patient. Would recommend CPAP therapy the patient is willing to undertake the treatment. This is a case of moderate severe obstructive sleep apnea and obviously the patient would benefit from therapy. Optimized sleep hygiene measures. Maintain regular sleep schedule. Optimize cardiovascular risk factors. Will follow.
== END 2023-07-16 05:15 | disposition home or self-care (01) ==
LOC: 3 N SLEEP 19:39
PROVIDERS: ATTEND Internal Medicine Critical Care Medicine
DX: G47.33 Obstructive sleep apnea (adult) (pediatric) (principal); G47.10 Hypersomnia, unspecified; R53.82 Chronic fatigue, unspecified; R06.83 Snoring; R05.9 Cough, unspecified; I71.20 Thoracic aortic aneurysm, without rupture, unspecified; E78.5 Hyperlipidemia, unspecified
CPT/HCPCS: 95810

== ENCOUNTER → 2024-08-18 | Outpatient (CLI) | payer OTHER ==
--- NOTE | 2024-08-19 15:56 | MR ---
EXAMINATION TYPE: MR knee RT wo con DATE OF EXAM: 08/18/2024 COMPARISON: NONE HISTORY: RT knee pain and swelling for one week after fall injury. TECHNIQUE: Multiplanar, multisequence images of the knee is performed without IV contrast. FINDINGS: MEDIAL MENISCUS: Horizontal and oblique signal posterior horn medial meniscus does not definitively e xtend to articular surface. LATERAL MENISCUS: Anterior and posterior horns are intact without tear. CRUCIATE LIGAMENTS: The anterior and posterior cruciate ligaments are intact and unremarkable. COLLATERAL LIGAMENTS: The lateral collateral ligament complex is intact and unremarkable. Medial armin ateral ligament shows marked surrounding edema extending superiorly with small focal tear along proxi mal aspect coronal image 19. EXTENSOR MECHANISM: Visualized quadriceps and patellar tendons are intact. EFFUSION: Small to moderate size suprapatellar joint effusion. POPLITEAL CYST: No popliteal/burleson cyst. TRICOMPARTMENT SPACES: Mild tricompartment joint space loss. No significant spurring. CARTILAGE: Tricompartmental articular cartilage is preserved. BONE MARROW SIGNAL: No focal abnormal marrow signal is appreciated. OTHER: No additional significant abnormality is appreciated. IMPRESSION: 1. Severe MCL sprain injury along with partial tearing of the proximal fibers. 2. No meniscal tear is seen. 3. Small to moderate size suprapatellar joint effusion. [facility], , 08/19/2024 3:54 PM
== END | disposition home or self-care (01) ==
LOC: RADMRIMAIN 19:08
PROVIDERS: ATTEND Orthopaedic Surgery Sports Medicine
DX: S83.8X1A Sprain of other specified parts of right knee, initial encounter (principal); S83.411A Sprain of medial collateral ligament of right knee, initial encounter; M25.461 Effusion, right knee

== ENCOUNTER 2024-09-27 10:06 | Emergency (ER) | payer OTHER ==
[2024-09-27] MEDS: DIPH,PERTUS(ACELL)TETVAC-LF 0.5 ML VIAL IM ONE (11:03)
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
[2024-09-27 12:39] VITALS: BP 140/88; PULSE 80; RESP 20; TEMP 98.2
[2024-09-27 15:48] LABS: Hepatitis B Surface Antigen Nonreactive (Nonreactive); Hepatitis C IgG Antibody Nonreactive (Nonreactive)
[2024-09-27 16:37] LABS: HIV 2 AB Non-Reactive (Non-Reactive); HIV AB P24 Non-Reactive (Non-Reactive); HIV P24 AG Non-Reactive (Non-Reactive)
== END 2024-09-27 12:20 | disposition home or self-care (01) ==
LOC: EC 10:06
DX: S80.211A Abrasion, right knee, initial encounter (principal); Z23 Encounter for immunization; Y04.0XXA Assault by unarmed brawl or fight, initial encounter; Y92.830 Public park as the place of occurrence of the external cause
CPT/HCPCS: 36415; 86706; 86803; 87340; 87390; 90471; 90715; 99284